=== PATIENT | female | born 1965 | race Caucasian/White ===

== ENCOUNTER 2016-03-22 01:24 | Emergency (ER) | payer OTHER, BC ==
[2016-03-22 01:41] VITALS: RESP 16; TEMP 96.2
--- NOTE | 2016-03-22 01:42 | PDOC ---
Lower Extremity Injury HPI - General Chief Complaint: Lower Extremity Problem/Injury Stated Complaint: KNEE PAIN FOLLOWING FALL Date Seen by Provider: 03/22/16 Time Seen by Provider: 01:37 Source: POSITIVE: Patient Exam Limitations: POSITIVE: No limitations Nurse's Notes Reviewed & Considered: Yes - History of Present Illness Initial Comments: Patient comes in tonight after a fall. 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 She is now complaining of left knee pain with ambulation. This was a mechanical fall. Have you received a tetanus shot in the past 10 years?: Unknown Body Location Affected: REPORTS: Lower Extremity (L) Timing: REPORTS: Abrupt Duration: 1/2 hour Severity: Mild Quality: REPORTS: "Pain", Stabbing, Throbbing, Tenderness Location at Time of Onset: REPORTS: Work (Hospital) Context of Injury: REPORTS: Fall (Tripping over an electric cord) Location of Injury: REPORTS: Knee (L) Modifying Factors: improves with: Movement Associated Symptoms: REPORTS: Popping Sensation Any Prior Injuries Related to Current Complaint?: No - Patient Home Medications Home Medications: Home Medications Cyanocobalamin (Vitamin B-12) [Vitamin B-12] 1 tab SL DAILY tab 09/28/13 Ibuprofen [Advil] 3 mg PO Q4-6H cap 02/14/14 Clonazepam 1 tab PO BID PRN #60 tab 09/26/15 Valacyclovir HCl [Valtrex] 2 tab PO Q12H #4 tab 09/26/15 Venlafaxine HCl ER [Effexor Xr] 1 cap PO QD #30 capsule 09/26/15 Albuterol Sulfate [Proair Hfa] 1 - 2 puff INH Q4-6H #1 inhaler 03/12/16 - Patient Allergies Allergies/Adverse Reactions: Allergies Allergy/AdvReac Type Severity Reaction Status Date / Time codeine Allergy Intermediate itching Verified 03/22/16 01:32 hydrocodone Allergy NAUSEA, Verified 03/22/16 01:32 ITCHING Past Medical History - heen HEENT History: Chipped or Loose Teeth Additional HEENT History: PT'S LEFT UPPER CHIPPED TEETH Cardiovascular History: Denies History Respiratory History: Asthma Additional Respiratory History: BROCHIAL ASTHMA. SEASONAL ALLERGIES. BRONCHITIS IN JANUARY Gastrointestinal History: Denies History Genitourinary History: Denies History Additional Endocrine History: HYPOGLYCEMIA. GESTATIONAL DIABETES IN 1990 Musculoskeletal History: Back Pain Prosthesis or Implant: No Additional Musculoskeletal History: LEFT FOOT BUNION Neurological History: Seizures Additional Neurological History: HX OF ONE STRESS RELATED SEIZURE , HAS HAD NONE SINCE 2000 Blood Disorders: Denies History Psychiatric History: Anixety Disorders History of Sexually Transmitted Diseases: No Cancer History: Denies History History of MDRO: No History of Other Communicable Diseases: No Alcohol Use: Occasionally Substance Use Type: None Previous Surgical History: Yes Type / Date of Surgery: C SECTION X 1/ TONSILLECTOMY/ TUBAL/ RIGHT HEEL I&D/ Anesthesia Reactions: No Malignant Hyperthermia: No Significant Family History: Heart disease, Diabetes, Renal disease ROS - Limitations ROS Limitations: No Limitations Constitution: REPORTS: Denies Symptoms Cardiovascular: REPORTS: Denies Cardiac Symptoms Respiratory: REPORTS: Denies Resp Symptoms Neurological: REPORTS: Denies Neuro Symptoms Gastrointestinal: REPORTS: Denies GI Symptoms Endocrine: REPORTS: Denies Symptoms Musculoskeletal: REPORTS: Joint Pain Genitourinary: REPORTS: Denies Symptoms Eyes: REPORTS: Denies Symptoms ENT: REPORTS: Denies Symptoms Skin: REPORTS: Denies Skin Symptoms Lympathic: REPORTS: Denies Lympathic Symptoms Immunologic: POSITIVE: Denies Symptoms Psychiatric: POSITIVE: Denies Psych Symptoms Lower Ext Complaint Exam - General Appearance General Appearance: POSITIVE: Alert, Cooperative, No Acute Distress, No Evidence of Trauma - Extremities Lower Extremity: POSITIVE: Normal Inspection, Normal ROM, Normal Color, Normal Temperature, Skin Intact, No Joint Swelling, Bony Tenderness (Anterior medial tibial plateau on the left.) Gait: POSITIVE: Normal Neurovascular/Tendon: POSITIVE: Sensation Normal, Motor Normal, No Vascular Compromise Skin: POSITIVE: Warm, Dry - HEENT HEENT: POSITIVE: Head Inspection Nml, Eyes Inspection Nml, Ears Inspection Nml, Nose Inspection Nml, PERRL, EOMI - Neck / Back Neck/Back: POSITIVE: Normal Inspection - Respiratory / CVS Respiratory / CVS: POSITIVE: Chest Non Tender, No Ecchymosis, Breath Sounds Normal, No Respiratory Distress, Heart Sounds Normal, Regular Rate/Rhythm - Abdomen Abdomen: Soft: (All Quadrants), Normal Bowel Sounds: (All Quadrants), Denies Tenderness: (All Quadrants) Procedures - Laceration/Wound Repair Did patient have a laceration repair: No Lower Ext Complaint Progress - Results Reviewed by me Xrays/CTs/US Reviewed by me: Yes Discussed with Radiologist: No - Patient's Progress Re-Examine Time:: 02:00 Status: POSITIVE: Improved MDM / ED Course: Patient was evaluated here in the emergency department. She declined pain medication. X-rays were obtained of her left knee which showed no acute osseous abnormalities. Patient is being discharged home with prescription for Percocet and instructions to use ice and follow-up if there is no improvement in 7-10 days. - Consult Counseled: POSITIVE: Patient, RE: Radiology Results, RE: DX Patient Care Time - Estimated PCT Patient Care Time (In Minutes): 15 Vital Signs - Recent Vital Signs Vital Signs: Vital Signs (Last 8 hours) Temp Pulse Resp BP Pulse Ox 03/22/16 01:31 96.2 F L 74 16 136/82 92 - VS Reviewed Vital Signs Reviewed: Yes Discharge Clinical Impression: Knee pain, acute Discharge Disposition: Discharged to Home Condition: Good Patient Instructions Given at Discharge: Knee Pain (ED)
--- NOTE | 2016-03-22 07:51 | DI ---
LEFT KNEE, 03/22/2016 1:36 AM: Clinical History: Injury. The patient fell. Previous Exam: None at this facility. 3 views are submitted. There is no acute soft tissue, osseous, or joint abnormality. Reading: Normal left knee exam.
== END 2016-03-22 02:08 | disposition home or self-care (01) ==
LOC: ER 01:24
DX: M25.562 Pain in left knee (principal); W18.39XA Other fall on same level, initial encounter; Y93.01 Activity, walking, marching and hiking; Y92.238 Other place in hospital as the place of occurrence of the external cause
CPT/HCPCS: 73562; 99282

== ENCOUNTER → 2016-03-25 | Outpatient (CLI) | payer OTHER, BC ==
--- NOTE | 2016-03-25 16:02 | DI ---
MRI LEFT KNEE SCAN, 03/25/2016 2:41 PM: Clinical History: Left knee pain. Previous Exam: None at this facility. Technique: Axial, coronal, and sagittal PD and fat saturated PD; axial T1 weighted. There is some edema in the subcutaneous fat just anterior to the junction of the patella with the pat ellar tendon. There is a large joint effusion with a medial plica and synovitis in the suprapatellar bursa. No abnormal bone signal pattern is present. There is a chronic partial tear at the junction be tween the medial patellofemoral ligament and the medial retinaculum with the anterior margin of the m edial collateral ligament. There is attenuation and "stretching" of the medial retinaculum and the pa tellofemoral ligament with lateral subluxation of the patella. The anterior cruciate ligament is norm al. There is a chronic partial tear of the length of the posterior cruciate ligament. There is interm ediate signal intensity in the proximal portion of the lateral collateral ligament indicating a chron ic partial tear. The medial and lateral menisci, the quadriceps and patellar and popliteus tendons an d the tendons of the medial and lateral heads of the gastrocnemius muscle are normal. The articular s urfaces of all 3 compartments are also normal. Readin. Large joint effusion with synovitis in the suprapatellar bursa. There is a medial plica. There ar e chronic partial tears involving the junction of the MCL with the medial patellofemoral ligament and the medial retinaculum. There is "stretching" of the medial patellofemoral ligament and the medial r etinaculum with lateral subluxation of the patella. There are chronic partial tears of the PCL and th e superior portion of the LCL. 2. The ACL, the medial and lateral menisci, and the quadriceps and patellar and popliteus tendons in the tendons of the medial and lateral heads of the gastrocnemius muscle are normal. The articular nuñez rfaces of all 3 compartments are intact.
== END ==
LOC: MRI 13:57
PROVIDERS: ATTEND Family Medicine
DX: M25.562 Pain in left knee (principal); M25.462 Effusion, left knee; S83.8X2A Sprain of other specified parts of left knee, initial encounter; M23.8X2 Other internal derangements of left knee
CPT/HCPCS: 73721